=== PATIENT | female | born 1970 | race Caucasian/White ===

== ENCOUNTER 2017-08-20 08:54 | Emergency (ER) | payer BC ==
[~2017-08-20] VITALS: Ht 157.5 cm; Wt 69.8 kg
[2017-08-20 09:47] LABS: HEMATOCRIT 37.6 % (36.0-46.0); MCH 30.4 PG (29.0-34.0); MCHC 33.2 G/DL (30.0-36.0); MCV 91.5 FL (83-99); MEAN PLAT.VOLUME 9.8 uM^3 (9.5-12.4); PLATELET COUNT 247 K/uL (156-360); RBC DIS.WIDTH-CV 12.2 % (11.8-14.6); RBC DIS.WIDTH-SD 40.9 % (39-53); RED BLOOD COUNT 4.11 M/uL (3.80-5.20); WHITE BLOOD COUNT 5.6 K/uL (4.1-10.2)
[2017-08-20 09:56] LABS: CHLORIDE 107 mEq/L (99-109); POTASSIUM 4.1 mEq/L (3.7-5.4); SODIUM 142 mEq/L (136-147)
[2017-08-20 09:58] LABS: GLUCOSE 94 mg/dL (70-99)
[2017-08-20 09:59] LABS: ANION GAP 8 MEQ/L (2-14)
[2017-08-20 10:02] LABS: GFR ESTIMATE (CALCULATED) > 59 mL/min/
[2017-08-20 10:03] LABS: UREA NITROGEN (BUN) 12 mg/dL (9-23)
[2017-08-20 10:08] LABS: TROP-I INTERPRETATION NEGATIVE; TROPONIN-I < 0.01 ng/mL (0.0-0.30)
[2017-08-20 12:22] VITALS: BP 114/79
== END 2017-08-20 12:24 | disposition home or self-care (01) ==
LOC: EME 08:54
PROVIDERS: Emergency Medicine
DX: R07.89 Other chest pain (principal); K21.9 Gastro-esophageal reflux disease without esophagitis; Z88.2 Allergy status to sulfonamides; Z88.6 Allergy status to analgesic agent
CPT/HCPCS: 71020; 80048; 83880; 84484; 85027; 93005; 99281; 99283